=== PATIENT | male | born 2000 | race Caucasian/White ===

== ENCOUNTER 2022-09-11 12:07 | Emergency (ER) | payer MEDICAID ==
[~2022-09-11] VITALS: Ht 185.4 cm; Wt 102.1 kg
[2022-09-11] MEDS ORDERED: ACETAMINOPHEN 325 MG TABLET PO ONE (12:30)
[2022-09-11] MEDS ORDERED: ACETAMINOPHEN ES 500 MG TABLET ONE (12:35)
[2022-09-11] MEDS ORDERED: DEXAMETHASONE SOD PHOSPHATE 10 MG INJ ONE (13:50)
[2022-09-11] MEDS ORDERED: IBUPROFEN 600 MG TABLET ONE (13:50)
[2022-09-11] MEDS ORDERED: IV NORMAL SALINE 1000 ML BAG IV ONE ×2 (14:00→15:00)
[2022-09-11] MEDS ORDERED: DEXAMETHASONE SOD PHOSPHATE 4 MG INJ IV ONE (14:00)
[2022-09-11] MEDS ORDERED: IBUPROFEN 600 MG TABLET PO ONE (14:00)
--- NOTE | 2022-09-11 16:01 | NUR ---
Patient discharged to home in stable condition. Written and verbal after care instructions given. Patient verbalizes understanding of instructions. IV removed. Stressed follow up or return to ER for worsening s/s.
[2022-09-11 16:02] VITALS: BP 131/83
== END 2022-09-11 16:02 | disposition home or self-care (01) ==
LOC: ER 12:07
DX: J02.9 Acute pharyngitis, unspecified (principal); Z20.822 Contact with and (suspected) exposure to COVID-19
CPT/HCPCS: 99283; 96374; 96361; 87426; 86403; J1100; J7040 ×2; A4663; A9150

== ENCOUNTER 2022-09-16 10:20 | Emergency (ER) | payer MEDICAID ==
[~2022-09-16] VITALS: Ht 185.4 cm; Wt 102.1 kg
[2022-09-16] MEDS ORDERED: IBUPROFEN 800 MG TABLET PO ONE (11:15)
[2022-09-16] MEDS ORDERED: IBUPROFEN 800 MG TABLET ONE (11:17)
[2022-09-16 11:51] LABS: *MONOTEST NEGATIVE (NEGATIVE)
[2022-09-16] MEDS ORDERED: IBUP-1958 PO ×2 (12:39→12:42)
[2022-09-16] MEDS ORDERED: ACET1TAB23 PO ×2 (12:39→12:42)
[2022-09-16 12:48] VITALS: BP 148/96
== END 2022-09-16 12:49 | disposition home or self-care (01) ==
LOC: ER 10:20
DX: J02.9 Acute pharyngitis, unspecified (principal)
CPT/HCPCS: 36415; 86308; A4663